=== PATIENT | male | born 1965 | race Caucasian/White ===

== ENCOUNTER 2016-10-27 09:49 | Day surgery (SDC) | payer BC ==
[2016-10-27] MEDS ORDERED: Sodium Chloride 0.9% 5 ML Syringe FLUSH PRN (10:00)
[2016-10-27] MEDS: Lactated Ringers 1,000 ML IV SCH (10:15)
--- NOTE | 2016-10-27 11:05 | PCM.PN ---
- General Info Date of Service: 10/27/16 - Review of Systems Systems Review Comment:: 51-year-old male referred for EGD and colonoscopy. He has a history of dysphasia. It is been several years since his last colon exam and he has noted occasional episodes of hematochezia. I discussed the proposed upper and lower endoscopy with the patient. Risks reviewed included but were not limited to bleeding and GI injury. He appears to understand and agrees to proceed. - Patient Data Vitals - most recent: Last Vital Signs Temp 98.2 F 10/27/16 10:16 Pulse 60 10/27/16 10:16 Resp 14 10/27/16 10:16 BP 129/73 10/27/16 10:16 Pulse Ox 98 10/27/16 10:16 Weight - most recent: 80.739 kg Med Orders - Current: Current Medications Lactated Ringer's (Ringers, Lactated) 1,000 mls @ 50 mls/hr IV ASDIRECTED MEREDITH Last Admin: 10/27/16 10:15 Dose: 50 mls/hr Sodium Chloride (Syrex Flush) 5 ml FLUSH Q8HR PRN PRN Reason: Keep Vein Open - Problem List Review Problem List Initiated/Reviewed/Updated: Yes - My Orders Last 24 Hours: My Active Orders 10/26/16 12:31 Resuscitation Status Routine 10/26/16 Dinner Nothing Per Oral Diet [DIET] 10/27/16 10:00 Patient to Empty Bladder [RC] ASDIRECTED Peripheral IV Care [RC] . DIRECTED Verify Patient Consent Obtain [RC] ASDIRECTED Lactated Ringers [Ringers, Lactated] 1,000 ml IV ASDIRECTED Sodium Chloride 0.9% [Syrex Flush] 5 ml FLUSH Q8HR PRN Peripheral IV Insertion Adult [OM.PC] Routine - Assessment Assessment:: dysphasia Hematochezia Colon cancer screening - Plan Plan:: EGD and colonoscopy
[2016-10-27] MEDS ORDERED: Midazolam 1 MG/ML 2 ML SDV ONE ×2 (11:16→11:19)
[2016-10-27] MEDS ORDERED: fentaNYL 100 MCG/2 ML SDV ONE ×2 (11:16→11:19)
[2016-10-27] MEDS ORDERED: Propofol 200 MG/20 ML SDV ONE ×2 (11:17→11:19)
[2016-10-27] MEDS ORDERED: Lidocaine 2% 100 MG/5 ML Syringe ONE (11:19)
[2016-10-27] MEDS ORDERED: Lidocaine 2% 5 ML SDV ONE (11:19)
[2016-10-27] MEDS ORDERED: Lidocaine 2% 100 MG/5 ML Syringe IVPUSH ONE (11:30)
--- NOTE | 2016-10-27 12:22 | PCM.OPNOTE ---
- General Post-Op/Procedure Note Date of Surgery/Procedure: 10/27/16 Operative Procedure(s): EGD with biopsy and colonoscopy Findings: normal esophagus stomach and duodenum Moderate-sized internal hemorrhoids Normal colon Pre Op Diagnosis: Dysphagia. Change in bowel habits Post-Op Diagnosis: Normal upper endoscopy. Internal hemorrhoids Anesthesia Technique: MAC Primary Surgeon: Allan Barton Pathology: Biopsies of gastric antrum and distal esophagus Output, Urine Amount: 0 EBL in mLs: 2 Complications: None Condition: Good
[2016-10-27 13:20] VITALS: BP 94/63
--- NOTE | 2016-10-27 20:38 | OR ---
DATE OF SURGERY: 10/27/2016 SURGEON: Allan Barton MD PREOPERATIVE DIAGNOSIS: Dysphagia and change in bowel habits. POSTOPERATIVE DIAGNOSIS: Normal upper endoscopy and internal hemorrhoids. OPERATION PERFORMED: Esophagogastroduodenoscopy with biopsy and colonoscopy. INDICATIONS FOR SURGERY: This 51-year-old male has been having some symptoms of intermittent dysphagia. He has also noticed a change in his bowel habits with some episodes of increasing constipation. He is referred for upper and lower endoscopy. FINDINGS: Structures on upper endoscopy including the esophagus, stomach, and duodenum appeared normal. There was no visible inflammation in these structures. There was no narrowing or mass-effect in the esophagus. The patient's colon appeared normal, although he did have moderate-sized internal hemorrhoids. PROCEDURE: The patient was taken to the operating room. He was given intravenous sedation and with him in the left lateral decubitus position, the esophagus was intubated with the Olympus gastroscope. Scope was carefully advanced under direct visualization through the esophagus, stomach, and into the duodenum where examination to the third portion was performed. After carefully examining the duodenum, scope was withdrawn back into the stomach where full examination including retroflexed examination of the fundus was performed. Biopsies of the antrum were taken to rule out H. pylori. The GE junction and distal esophagus were again carefully examined. No obstruction was seen. Biopsies of the distal esophageal mucosa were taken because of the patient's symptoms. The scope was removed after the esophagus had been completely re-examined. Attention was turned to colonoscopy. Digital rectal exam was performed showing no rectal masses. The Olympus colonoscope was inserted into the rectum. Retroflexed examination of the rectal canal was performed, was then carefully advanced under direct visualization through the entire length of the colon until the cecum was reached. Cecal acquisition was confirmed by noting the normal internal cecal anatomy including the appendiceal orifice and ileocecal valve. The light was also noted to transilluminate the abdominal wall in the right lower quadrant. After examining the cecum, the scope was slowly withdrawn sequentially re-examining the colonic segment until the entire colon and rectum had been fully examined. The scope was then removed and the patient was taken from the operating room in satisfactory condition. ESTIMATED BLOOD LOSS: 2 mL. COMPLICATIONS: None. PROGNOSIS: Good. /[id number]/MODL MTDD
== END 2016-10-27 14:00 | disposition home or self-care (01) ==
LOC: KA.SDS 09:49
PROVIDERS: ATTEND Surgery
DX: K29.50 Unspecified chronic gastritis without bleeding (principal); K20.9 Esophagitis, unspecified
CPT/HCPCS: 43239; 45378; J2250; J2704; J3010; J7120

== ENCOUNTER 2018-04-25 17:30 | Emergency (ER) | payer BC ==
[2018-04-25 17:36] VITALS: BP 118/65
[2018-04-25] MEDS ORDERED: Bacitracin/Neomycin/Polymyxin B Oint 0.9 GM U/D Packet ONE (17:57)
[2018-04-25] MEDS ORDERED: Diphtheria,Pertussis(Acell),Tetanus Vaccine 0.5 ML SDV IM ONE (18:12)
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
== END 2018-04-25 18:25 | disposition home or self-care (01) ==
LOC: KA.ED 17:30
DX: S61.411A Laceration without foreign body of right hand, initial encounter (principal); Z23 Encounter for immunization; W26.0XXA Contact with knife, initial encounter
CPT/HCPCS: 12002; 90471; 90715; 99283